=== PATIENT | male | born 1930 | race Caucasian/White ===

== ENCOUNTER 2016-08-05 18:18 | Emergency (ER) | payer MEDICARE ==
[2016-08-05 14:56] LABS: BASOPHILS 0.1 %; BASOPHILS ABSOLUTE 0.01 10/3/uL (0.0-0.16); EOSINOPHILS 1.2 %; EOSINOPHILS ABSOLUTE 0.09 10/3/uL (0.0-0.53); ER CBC TAT 0 Hrs 11 Mins; HEMOGLOBIN 10.9 g/dL (13.6-17.8); IMMATURE GRANULOCYTES 0.1 %; IMMATURE GRANULOCYTES ABSOLUTE 0.01 10/3/uL (0.0-0.11); LYMPHOCYTES 7.5 %; LYMPHOCYTES ABSOLUTE 0.56 10/3/uL (0.67-4.30); MEAN CORPUS HGB CONC 32.1 g/dL (32.0-36.0); MEAN CORPUSCULAR HEMOGLOB 29.1 pg (26.0-34.0); MEAN CORPUSCULAR VOLUME 90.9 fL (80-100); MEAN PLATELET VOLUME 10.2 fL (9.2-13.0); MONOCYTES 11.3 %; MONOCYTES ABSOLUTE 0.84 10/3/uL (0.21-1.20); NEUTROPHILS 79.8 %; NEUTROPHILS ABSOLUTE 5.92 10/3/uL (2.02-8.40); PLATELET COUNT 113 10/3/uL (150-400); RED CELL COUNT 3.74 10/6/uL (4.7-6.1); WHITE BLOOD CELLS 7.4 10/3/uL (4.5-10.5)
[2016-08-05 15:05] LABS: MANUAL DIFF NO %
[2016-08-05 15:10] LABS: A/G RATIO 0.8 (0.7-1.9); ALBUMIN 3.2 G/DL (3.5-5.0); ALKALINE PHOSPHATASE 132 U/L (45-117); BUN (BLOOD UREA NITROGEN) 90 MG/DL (6-23); CALCIUM, SERUM 9.4 MG/DL (8.5-10.4); CHLORIDE, SERUM 102 MMOL/L (96-112); CO2 (CARBON DIOXIDE) 29 MMOL/L (24-34); CREATININE 3.63 MG/DL (0.70-1.30); GFR AFRICAN AMERICAN 17 ML/MIN (>=60); GFR NON AFRICAN AMERICAN 14 ML/MIN (>=60); GLOBULIN 3.9 G/DL (2.5-4.1); GLUCOSE, SERUM 90 MG/DL (60-99); POTASSIUM, SERUM 3.4 MMOL/L (3.5-5.3); SGOT(AST) 20 U/L (5-40); SGPT(ALT) 16 U/L (5-65); SODIUM, SERUM 139 MMOL/L (135-148); TOTAL BILIRUBIN 0.7 MG/DL (0-1.2); TOTAL PROTEIN 7.1 G/DL (6.0-8.5)
[2016-08-05 16:06] LABS: WBC (NOT ORDERED) (RFLEX) 0 (0-5)
[2016-08-05 16:18] LABS: ASCORBIC ACID (UR NOT ORDER) 40 (NEG); BILIRUBIN, URINE NEGATIVE (NEG); ER URINALYSIS TAT 0 Hrs 12 Mins; KETONE, URINE NEGATIVE (NEG); LEUKOCYTE ESTERASE(NOT OR NEG (NEG); NITRITE (URINE) NEG (NEG)
[~2016-08-05 18:18] MED LIST: ACET500CAP PO; ADVAIR230P INH; ALLEGRA180 PO; AMARYL2 PO; APRES25 PO; APRES50 PO; ASAB PO; AT25 PO; BUM2 PO; BYSTOLIC10 MG PO; C1 PO; C25; C25 PO; C5 PO; CARDU4 PO; CARDURA1 MG PO; CARDURA8 MG PO; CAT1 PO; COREG25 PO; COREG3 PO; CYANO1000T PO; DEMA20 PO; DIABETA5 PO; FERRETTS325 MG PO; FERROUS SULF324 MG PO; GLUCOTRO10 PO; GLUCXL2.5 PO; HALF81 PO; HEMOCYTE324 MG PO; HYDRALAZINE100 MG PO; HYDROMET1 ML PO; IMDUR60 PO; IRON PO; K500 PO; L80 PO; LEVAQUIN750 MG PO; LEVOTHROID112 MCG PO; LEVOTHROID137 MCG PO; LEVOTHYROXIN137 MCG PO; LEVOTHYROXIN150 MCG PO; LEVOXYL125 MCG PO; LONITEN2.5 PO; LUCENTIS; MICRO-K10 MEQ PO; NIACIN 500 PO; NIACIN750 MG PO; NORV10 PO; POLYMYXIN B/ OP; PRILO PO; PRIN5 PO; PROAIR HFA INH; PROTONIX PO; SLO-NIACIN250 MG PO; SLO-NIACIN750 MG PO; SPIRIVA INH; TAMIFLU PO; TEARS PLUS OP; TYLENOL PO; VICODINTAB PO; VIST25 PO; VITAMIN B-121000 MC1 SL; VITAMIN D1000 UNI1 PO; VITAMIN D2000 UNIT PO; VITAMIN D31000 UNIT PO; WARFARIN; WELCHOL 625 MG625 MG PO; WELCHOL625 MG OR; Z5 PO; [UNRECOGNIZED DRUG - OTHER]; [UNRECOGNIZED DRUG - OTHER] IN; [UNRECOGNIZED DRUG - OTHER] OP
[2016-08-24] MEDS ORDERED: LEVOTHYROXIN175 MCG PO (23:40)
[2016-08-24] MEDS ORDERED: CARDU4 PO (23:40)
[2016-08-24] MEDS ORDERED: Z5 PO (23:41)
[2016-08-24] MEDS ORDERED: L80 PO (23:42)
[2016-08-24] MEDS ORDERED: TOUJEO SC (23:42)
[2016-08-24] MEDS ORDERED: GLUCOTRO10 PO (23:45)
[2016-08-24] MEDS ORDERED: IMDUR30 PO (23:45)
[2016-08-24] MEDS ORDERED: HYDRALAZINE100 MG PO (23:46)
[2016-08-24] MEDS ORDERED: PRILO PO (23:46)
[2016-08-24] MEDS ORDERED: CYANO1000T PO (23:46)
[2016-08-24] MEDS ORDERED: FERROUS SULF325 M1 PO (23:47)
[2016-08-24] MEDS ORDERED: VITAMIN D31000 UNIT PO (23:47)
[2016-08-24] MEDS ORDERED: C25 PO (23:48)
[2016-08-24] MEDS ORDERED: COUMADIN3 MG PO (23:48)
[2016-08-24] MEDS ORDERED: ULORIC40 MG PO (23:49)
[2016-08-24] MEDS ORDERED: VITC500 PO (23:49)
[2016-08-24] MEDS ORDERED: P5 PO (23:49)
[2016-08-24] MEDS ORDERED: ACET500CAP PO (23:49)
[2016-10-05] MEDS ORDERED: VITC500 PO (21:27)
[2016-10-05] MEDS ORDERED: VITAMIN D1000 UNI1 PO (21:27)
[2016-10-05] MEDS ORDERED: ACET500CAP PO (21:27)
[2016-10-05] MEDS ORDERED: CYANO1000T PO (21:27)
[2016-10-05] MEDS ORDERED: L40 PO (21:28)
[2016-10-05] MEDS ORDERED: ASAB PO (21:28)
[2016-10-05] MEDS ORDERED: PLAVIX PO (21:28)
[2016-10-05] MEDS ORDERED: CARDU4 PO (21:28)
[2016-10-05] MEDS ORDERED: NORCO1 TAB PO (21:28)
[2016-10-05] MEDS ORDERED: TOUJEO SC (21:29)
[2016-10-05] MEDS ORDERED: GLUCOTRO10 PO (21:29)
[2016-10-05] MEDS ORDERED: PEP20 PO (21:29)
[2016-10-05] MEDS ORDERED: HYDRALAZINE100 MG PO (21:29)
[2016-10-05] MEDS ORDERED: PRILO PO (21:30)
[2016-10-05] MEDS ORDERED: P5 PO (21:30)
[2016-10-05] MEDS ORDERED: IMDUR30 PO (21:30)
[2016-10-05] MEDS ORDERED: SYNTHROID175 MCG PO (21:31)
== END 2016-08-05 20:21 | disposition home or self-care (01) ==
LOC: ER 18:18
PROVIDERS: Emergency Medicine
DX: K80.20 Calculus of gallbladder without cholecystitis without obstruction (principal); N18.9 Chronic kidney disease, unspecified; I12.9 Hypertensive chronic kidney disease with stage 1 through stage 4 chronic kidney disease, or unspecified chronic kidney disease; I13.0 Hypertensive heart and chronic kidney disease with heart failure and stage 1 through stage 4 chronic kidney disease, or unspecified chronic kidney disease; I50.9 Heart failure, unspecified; J44.9 Chronic obstructive pulmonary disease, unspecified; I48.91 Unspecified atrial fibrillation; D64.9 Anemia, unspecified; Z95.1 Presence of aortocoronary bypass graft; Z87.442 Personal history of urinary calculi; Z88.1 Allergy status to other antibiotic agents; Z79.82 Long term (current) use of aspirin; Z79.01 Long term (current) use of anticoagulants; Z79.899 Other long term (current) drug therapy
CPT/HCPCS: 74176; 76705; 80053; 81001; 83690; 85025; 96374; 96375; 99284; J2405